=== PATIENT | female | born 2000 | race African-American/Black ===

== ENCOUNTER 2021-06-10 09:07 | Emergency (ER) | payer OTHER ==
[~2021-06-10] VITALS: Ht 172.7 cm; Wt 72.0 kg
[2021-06-10 09:55] VITALS: BP 128/72
[2021-06-10] MEDS ORDERED: ALBU6.7H9 INH (12:26)
== END 2021-06-10 12:46 | disposition home or self-care (01) ==
LOC: ER 09:07
DX: Z20.822 Contact with and (suspected) exposure to COVID-19 (principal)
CPT/HCPCS: 71045; 87426; 99284

== ENCOUNTER 2023-12-21 11:50 | Emergency (ER) | payer MEDICAID, OTHER ==
[~2023-12-21] VITALS: Ht 167.6 cm; Wt 54.0 kg
[~2023-12-21 11:50] MED LIST: ALBU6.7H3 INH
[2023-12-21 12:04] VITALS: BP 133/87; PULSE 103; RESP 18; TEMP 98.5; O2SAT 100
[2023-12-21 12:37] LABS: CHLORIDE 103 mEq/L (98-107); POTASSIUM 4.2 mEq/L (3.5-5.1); SODIUM 133 mEq/L (136-145)
[2023-12-21 12:39] LABS: CARBON DIOXIDE 22 mEq/L (21-32)
[2023-12-21 12:40] LABS: CALCIUM 9.8 mg/dL (8.7-10.4)
[2023-12-21 12:44] LABS: CREATININE 0.9 mg/dL (0.6-1.0); GLUCOSE 69 mg/dL (70-105)
[2023-12-21 12:45] LABS: ALANINE AMINOTRANSFERASE 11 IU/L (10-49); ALBUMIN 4.9 g/dL (3.2-4.8); ASPARTATE AMINOTRANSFERASE 18 IU/L (<34); UREA NITROGEN BLOOD 11 mg/dL (9-23)
[2023-12-21 12:47] LABS: BILIRUBIN DIRECT 0.2 mg/dL (<=3.0); BILIRUBIN TOTAL 0.6 mg/dL (0.1-1.0); PROTEIN TOTAL 8.2 g/dL (6.0-8.3)
[2023-12-21 12:51] LABS: BASOPHILS % 0.4 % (0.0-2.0); EOSINOPHILS % 0.7 % (0.0-5.0); HEMATOCRIT. 40.1 % (36.0-48.0); LYMPHOCYTES % 12.2 % (20.0-50.0); MEAN CORPUSCULAR HEMOGLOBIN 27.9 pg (28.0-32.0); MEAN CORPUSCULAR HGB CONC 32.5 g/dL (31.0-37.0); MEAN CORPUSCULAR VOLUME 85.7 fL (81.0-99.0); MEAN PLATELET VOLUME 8.6 fl (7.4-10.4); MONOCYTES % 12.3 % (2.0-8.0); NEUTROPHILS % 74.4 % (40.0-76.0); PLATELET 206 x1000/uL (130-400); RED BLOOD CELL COUNT 4.67 mill/uL (4.2-5.4); RED CELL DISTRIBUTION WIDTH 14.4 % (11.6-14.6); WHITE BLOOD COUNT 4.6 x1000/uL (4.5-11.0)
[2023-12-21 13:06] LABS: CLARITY URINE CLOUDY (CLEAR); COLOR URINE YELLOW (YELLOW); GLUCOSE URINE NEGATIVE (NEGATIVE); KETONES URINE 4+ (NEGATIVE); LEUKOCYTE ESTERASE URINE 1+ (NEGATIVE); NITRITE URINE NEGATIVE (NEGATIVE); OCCULT BLOOD URINE NEGATIVE (NEGATIVE); PROTEIN URINE 1+ (NEGATIVE); SPECIFIC GRAVITY URINE 1.033 (1.005-1.030)
[2023-12-21] MEDS: HYDROCODONE/ACETAMINOPHEN 5/325MG TABLET PO ONE (13:07)
[2023-12-21 13:14] LABS: UCG KIT LOT# 819946; UCG SCREEN NEGATIVE
[2023-12-21 13:20] LABS: BACTERIA URINE 4+; RBC URINE 0-2 /hpf (0-2); SQUAMOUS EPITHELIAL CELL URINE 3+ /lpf (RARE/1+); YEAST URINE NONE SEEN
[2023-12-21] MEDS ORDERED: CEPH500C2 MT (13:50)
[2023-12-21] MEDS: KETOROLAC 30MG/ML VIAL IM ONE (14:05)
== END 2023-12-21 14:05 | disposition home or self-care (01) ==
LOC: ER 11:50
DX: N39.0 Urinary tract infection, site not specified (principal)
CPT/HCPCS: 36415; 80048; 80076; 81003; 81025; 85025; 99283

== ENCOUNTER 2024-07-31 11:40 | Emergency (ER) | payer MEDICAID ==
[~2024-07-31] VITALS: Ht 170.2 cm; Wt 46.0 kg
[~2024-07-31 11:40] MED LIST changes: +CEPH500C2 MT
[2024-07-31 11:43] VITALS: O2SAT 100
[2024-07-31] MEDS: ONDANSETRON 4MG ODT PO STA (12:27)
[2024-07-31 13:00] LABS: CLARITY URINE CLEAR (CLEAR); COLOR URINE YELLOW (YELLOW); GLUCOSE URINE NEGATIVE (NEGATIVE); KETONES URINE NEGATIVE (NEGATIVE); LEUKOCYTE ESTERASE URINE NEGATIVE (NEGATIVE); NITRITE URINE NEGATIVE (NEGATIVE); OCCULT BLOOD URINE NEGATIVE (NEGATIVE); PROTEIN URINE TRACE (NEGATIVE); SPECIFIC GRAVITY URINE 1.023 (1.005-1.030); UROBILINOGEN URINE 0.2 E.U./dL (0.2-1.0)
[2024-07-31 13:12] LABS: BACTERIA URINE 1+; RBC URINE 0-2 /hpf (0-2); SQUAMOUS EPITHELIAL CELL URINE 1+ /lpf (RARE/1+); YEAST URINE NONE SEEN
[2024-07-31] MEDS ORDERED: ONDA4TAB50 MT (13:21)
[2024-07-31] MEDS ORDERED: CEPH500T MT (13:21)
[2024-07-31 13:32] VITALS: BP 132/88; PULSE 84; RESP 18; TEMP 36.4; O2SAT 100
== END 2024-07-31 13:33 | disposition home or self-care (01) ==
LOC: ER 11:40
DX: N39.0 Urinary tract infection, site not specified (principal); J02.9 Acute pharyngitis, unspecified
CPT/HCPCS: 99283; 81003; 81025; Q0162

== ENCOUNTER 2024-12-03 09:07 | Emergency (ER) | payer MEDICAID ==
[~2024-12-03] VITALS: Ht 172.7 cm; Wt 57.0 kg
[~2024-12-03 09:07] MED LIST changes: +CEPH500T MT; +ONDA4TAB50 MT
[2024-12-03 09:14] VITALS: TEMP 36.8; O2SAT 99
[2024-12-03] MEDS ORDERED: BENZ1LOZ73 MT (09:31)
[2024-12-03] MEDS ORDERED: IBUP-2029 MT (09:31)
[2024-12-03] MEDS: KETOROLAC 30MG/ML VIAL IM ONE (09:46)
[2024-12-03] MEDS: DEXAMETHASONE 10 MG/ML VIAL PO ONE (09:47)
[2024-12-03 10:03] VITALS: BP 138/62; PULSE 85; RESP 15; O2SAT 99
== END 2024-12-03 10:07 | disposition home or self-care (01) ==
LOC: ER 09:07
DX: J02.9 Acute pharyngitis, unspecified (principal); Z79.899 Other long term (current) drug therapy
CPT/HCPCS: 99283; 87430; 87070; 96372; J1885; J1100

== ENCOUNTER 2024-12-20 11:10 | Emergency (ER) | payer MEDICAID ==
[~2024-12-20] VITALS: Ht 172.7 cm; Wt 56.0 kg
[~2024-12-20 11:10] MED LIST changes: +BENZ1LOZ73 MT; +IBUP-2029 MT
[2024-12-20 11:13] VITALS: O2SAT 99
[2024-12-20 11:20] VITALS: BP 127/80; PULSE 79; RESP 16; TEMP 37; O2SAT 98
== END 2024-12-20 12:16 | disposition home or self-care (01) ==
LOC: ER 11:10
DX: S93.409A Sprain of unspecified ligament of unspecified ankle, initial encounter (principal); Z79.899 Other long term (current) drug therapy; W01.0XXA Fall on same level from slipping, tripping and stumbling without subsequent striking against object, initial encounter; Y93.02 Activity, running; Y92.89 Other specified places as the place of occurrence of the external cause; Y99.8 Other external cause status
CPT/HCPCS: 99283; 73630; A6449